=== PATIENT | female | born 1950 | race Asian ===

== ENCOUNTER → 2019-11-06 13:06 | Outpatient (CLI) | payer MEDICARE, OTHER, SELFPAY ==
[2019-11-06 13:46] LABS: BUN Creatinine Ratio 30.9 (6-22); Blood Urea Nitrogen 21 mg/dL (7-17); Estimated Glomerular Filt Rate > 60.0 mL/min (>60)
--- NOTE | 2019-11-06 14:23 | DI.CT.S_ITS ---
PROCEDURE: CT ABDOMEN PELVIS W CON INDICATIONS: RIGHT LOWER QUADRANT PAIN TECHNIQUE: After the administration of oral and intravenous contrast, 5 mm thick sections acquired from the diaphragms to the symphysis. 5 mm thick coronal and sagittal reformats were performed. For radiation dose reduction, the following was used: automated exposure control, adjustment of mA and/or kV according to patient size. COMPARISON: None. FINDINGS: Image quality: Excellent. ABDOMEN: Lung bases: Lung bases are clear. Heart size is normal. Solid organs: Liver is normal in size and enhancement. Hepatic steatosis. Gallbladder is unremarkable. Biliary system is non-dilated. Pancreas enhances normally. Spleen is normal in size and enhancement. No adrenal nodules. Kidneys are normal in size and enhancement, without hydronephrosis. Peritoneum and bowel: Stomach, small bowel, and colon loops are normal in caliber and wall thickness. No free fluid or air. Normal appendix containing air and contrast. Nodes and vessels: No retroperitoneal or mesenteric adenopathy. Aorta and inferior vena cava are normal in caliber. Miscellaneous: No ventral hernias. PELVIS: Genitourinary: Bladder wall thickness is normal. Miscellaneous: No inguinal hernias or adenopathy. Very large uterine fibroid, measuring approximately 8.5 x 6.8 x 7.1 cm. Bones: No suspicious bony lesions. No vertebral body compression fractures. IMPRESSION: 1. Very large uterine fibroid. 2. Otherwise unremarkable CT of the abdomen and pelvis with contrast. Dictated by: Clem Bland M.D. on 11/06/2019 at 15:08 Approved by: Clem Bland M.D. on 11/06/2019 at 15:11
== END ==
PROVIDERS: PCP Family Medicine; Referring Provider Family Medicine; Visit Provider Family Medicine
DX: R10.31 Right lower quadrant pain (principal); D25.9 Leiomyoma of uterus, unspecified
CPT/HCPCS: 36415; 74177; 82565; 84520; Q9967

== ENCOUNTER → 2020-02-11 10:30 | Outpatient (CLI) | payer MEDICARE, OTHER, SELFPAY ==
[2020-02-12 03:47] LABS: COVID19 Sendout Not Detected (Not Detect)
== END ==
PROVIDERS: PCP Family Medicine; Visit Provider Physician Assistant
DX: Z11.59 Encounter for screening for other viral diseases (principal)
CPT/HCPCS: 87635

== ENCOUNTER 2020-02-14 05:58 | Day surgery (SDC) | payer MEDICARE, OTHER, SELFPAY ==
[2020-02-06 08:36] VITALS: BMI 31.0
[2020-02-14] VITALS (16 sets, daily range): BP systolic 119–176; BP diastolic 58–92; PULSE 72–96; RESP 15–20; TEMP 35.8–36.7; O2SAT 92–98; BMI 31.0
--- NOTE | 2020-02-14 | PATH_ITS ---
[facility] Accession Number: [id number] . 01 Material submitted: . uterus - UTERUS,BILATERAL FALLOPIAN TUBES AND OVARIES . 02 Diagnosis: Uterus, Bilateral Fallopian Tubes and Ovaries, Hysterectomy and Bilateral Salpingo-oophorectomy (Weight 323 grams, Morcellated Specimen): Basalis endometrium; negative for glandular hyperplasia, cytologic atypia, or malignancy. Myometrium with intramural leiomyomas (0.2-6.2 cm in greatest dimension). Ovaries with patchy serosal adhesions and one ovary with an adjacent presumed adrenal cortical rest; confirmatory immunohistochemistry studies pending; results will be reported as an addendum. Fallopian tubes with serosal adhesions, nonspecific, and otherwise no significant histomorphologic abnormality. MRV 02/18/2020 1119 Local . 02 Electronically signed: . Juani Saldivar MD, Pathologist NPI- [id number] . 01 Gross description: . Received in formalin, labeled with the patient's name, MRN and uterus, bilateral fallopian tubes and ovaries, is [id number], 16.0 x 15.2 x 6.9 cm aggregate of morcellated uterus with detached ovaries (each weighing 1 gram, and measures 2.0 x 1.2 x 0.5 cm and 2.5 x 0.8 x 0.4 cm), and two detached fimbriated fallopian tubes (averaging 5.5 cm in length by 0.5 cm in diameter). . The serosal surface of the uterus is pink-pineda and smooth. The identifiable endometrium is pink-pineda with focal areas of hemorrhage. The endometrium measures 0.1 cm in thickness and the myometrium measures 1.1 cm in thickness. There are multiple white-pineda fragmented nodules ranging in size from 0.2 cm to 6.2 cm in greatest dimension. The external surfaces of the ovaries are pineda-white and cerebriform. The ovaries are bisected to reveal a pink-pineda smooth cut surface. The external surfaces of the fallopian tubes are pink-pineda and smooth. The fallopian tubes are serially sectioned to reveal a pineda-pink cut surface with a stellate lumen. No discrete cervix is identified. No discrete lesions are identified. High Lift Mule Operator sections are submitted as follows: . A1-A2: full-thickness sections of uterine wall. A3: hospital insurance representative section of half of longer ovary. A4: hospital insurance representative half of shorter ovary. A5: hospital insurance representative sections of shorter fallopian tube and entire trisected fimbriated end. A6: hospital insurance representative sections of longer fallopian tube and entire trisected fimbriated end. A7: hospital insurance representative sections of nodules. ([id number]) /MRV 02/15/2020 1239 Local . 02 Pathologist provided ICD-10: D25.9 . 02 CPT . 653948 Performed at: 01 [facility] [address] [facility], [place], [place] [id number] MD Beni Pillai MD Phone: [phone] Performed at: [address] [facility] [address] [place], [place] [id number] MD Lynda Cintron MD Phone: [phone]
[2020-02-14] MEDS: LACTATED RINGERS 1,000 ML 100 ML IV ×2 (06:45→09:31)
[2020-02-14 07:08] LABS: Add Manual Diff / Slide Review NO; Basophils Absolute Auto 100 /uL (0-100); Basophils Percent Auto 1.2 % (0-2); Eosinophils Absolute Auto 600 /uL (0-450); Eosinophils Percent Auto 6.9 % (2-4); Hematocrit 44.2 % (36-46); Hemoglobin 14.9 g/dL (12.0-16.0); Lymphocytes Absolute Auto 2600 /uL (1100-4500); Lymphocytes Percent Auto 32.7 % (25-40); Mean Corpuscular HGB Conc 33.7 % (30-36); Mean Corpuscular Hemoglobin 32.8 PG (26-34); Mean Corpuscular Volume 97.6 fL (80-100); Monocytes Absolute Auto 600 /uL (0-900); Monocytes Percent Auto 6.9 % (3-14); Neutrophils Absolute Auto 4200 /uL (1500-7000); Neutrophils Percent Auto 52.3 % (50-75); Platelet Count 247 X10^3/uL (150-400); Red Blood Cell Count 4.53 X10^6/uL (4.0-5.2); Red Cell Distribution Width 13.4 % (11.6-14.8); White Blood Cell Count 8.1 X10^3/uL (4.5-11.0)
--- NOTE | 2020-02-14 07:38 | PM.PREOP ---
Pre-operative Note COVID-19 COVID-19 status: Negative Result date/Date tested (Pos, Neg/Pending): 02/11/20 Interval Note History & Physical reviewed/Exam performed by Physician: Yes Changes to H&P: No
[2020-02-14] MEDS: CEFAZOLIN 2 GM/100 ML FROZ.PIGGY IV (07:40)
--- NOTE | 2020-02-14 08:43 | SUR.OPER ---
Lithotomy on padded OR bed. [place] Pad Positioner under torso. Head on pillow, arms padded and tucked at sides. Legs secured in padded yellow fins stirrups.
[2020-02-14] MEDS: BUPIVACAINE 0.25% W/ EPI 30 ML VIAL INJ (09:35)
[2020-02-14] MEDS: ROPIVACAINE 0.2% PF 2 MG/ML 10ML AMP 20 ML INJ (09:36)
--- NOTE | 2020-02-14 10:53 | PM.OP.1 ---
Operative Date/Time/Diagnoses Date of procedure: 02/14/20 Time of procedure: 07:45 Pre-op diagnosis: large uterine fibroid Post-op diagnosis: same Procedure & Clinicians Procedure: laparoscopic supracervical hysterectomy and bilateral salpingoophorectomy Same procedure as scheduled: Yes Indications: large, symptomatic uterine fibroid Surgeon: Elena Rose Hot Air Furnace Installer Repairer: Marie Stoll Anesthesia Type: General Operative Notes Findings: 14 week size uterus with smooth contours and good mobility. Normal vulva, vagina, cervix. Normal ovaries and tubes. Normal appendix. Closure Type: primary Specimen(s): other (uterus, bilateral tubes and ovaries) Estimated Blood Loss (mL): 50 Procedure in detail: After proper consents were obtained, the patient was taken to the operating room. General anesthesia was induced, and she was placed in the dorsal lithotomy position and prepped and draped in the normal sterile fashion. A pitt catheter was placed, and a speculum placed in the patient's vagina. A single tooth tenaculum was applied to the anterior lip of the cervix, and hegar dilators used to dilate the cervix to 6mm with gentle pressure. A uterine manipulator was gently inserted and the balloon inflated to 5ccs. The tenaculum and speculum were removed from the vagina. Attention was then turned to the abdomen, where 1cc of .25% marcaine with epinephrine was used to infiltrate the skin just below the umbilicus. A scalpel was used to make a 5mm incision, towel clamps were applied and used to elevate the anterior abdominal wall, and a Veress needle gently inserted into the abdomen. A drop of normal saline passed easily through the Veress needle with gravity, but when the CO2 gas was attached and began to flow, high-pressure was immediately noted. The Veress needle was removed in placement re-attempted, with a similar result. At this point, the Jenkins technique was used to cut down and open incision into the peritoneal cavity. This was achieved with some difficulty, it was noted that preperitoneal insufflation had occurred. The peritoneal cavity was then insufflated with CO2 gas to maximum pressure of 15 mm of mercury. Intraperitoneal placement was confirmed visually with insertion of the laparoscope. An abdominal survey at this time was normal the limited by significant fat deposits in the upper abdomen. Long 5mm lateral ports were placed under direct visualization. These were placed on the left and right, 8cm from the umbilicus and after infiltration of 1mm of local anesthetic as above. The patient was placed in steep trendelenburg position, and a blunt probe used to gently push the bowel out of the pelvis. The ovaries and fallopian tubes appeared normal bilaterally. At this point, it became evident due to the large fundal fibroid that a suprapubic biology laboratory assistant port was necessary. 1 mm of local anesthetic was infiltrated at the hairline suprapubically in the midline, a 5 mm incision was made, and a 5 mm port placed under direct visualization. A Kristine grasper was placed through the suprapubic port and used to grasp to the fundus, and an atraumatic grasper was used to elevate the right ovary and fallopian tube. The infundibular pelvic ligament was identified by lifting the tube and ovary towards the anterior wall of the abdomen. Due to copious amount of intraperitoneal fat deposit, identification of the ureter was impossible without significant retroperitoneal dissection, so the PK device was used to hug the ovary and clamped and ligate the IP ligament. The pedicle was inspected for hemostasis, and good hemostasis was identified. The broad ligament was then sequentially clamped, ligated, and cut, working towards the round ligament, avoiding the pelvic sidewall. The anterior leaf of the broad ligament was taken down on the right side, dissecting toward the peritoneal reflection to form a bladder flap. Uterine arteries were identified, clamped and ligated 3 times, and cut at the level of the internal os with good hemostasis noted. The same procedure was performed on the left, with no complications noted bilaterally. The Dalia loop was inserted into the abdomen, and placed around the uterus at the level of the internal os. After careful inspection for proper placement anteriorly and posteriorly, this device was used to amputate the uterine fundus without complication. The PK device was used to ablate the cervical os, and hemostasis achieved where necessary with the PK device. Attention was then turned to the abdominal wall, where the previously inserted suprapubic biology laboratory assistant port was noted. A scalpel was used to make a 3cm minilaparotomy, and a 15mm trocar and sleeve inserted under direct visualization into the abdominal cavity. A 12mm endocatch bag was placed through this port under direct visualization, and carefully deployed into the abdomen. The uterus was placed in the bag, and the bag was closed and removed under direct visualization of all parts of the bag. The open end of the bag was removed through the port, the port was removed, and the open end of the endocatch bag brought through the incision. A small Eddei device was inserted to protect the incision and skin, and the uterus was brought to the opening of the incision and carefully hand morcellated out through the incision using a scalpel. After removal of the uterus, the eddie device and endocatch bag were removed. The Endo-Catch bag was noted to be intact. The fascia at the minilaparotomy incision was closed using 0 vicryl in a running fashion. The fascia at the umbilical port site was similar to close using 0 Vicryl in a running fashion. The abdomen was re-insufflated, hemostasis at the operative sites assured, and a repeat abdominal survey was normal. The laparoscope was removed from the abdomen, the insufflating gas allowed to escape, and the ports removed. an interrupted suture was used at the mini-laparotomy to close the subcutaneous space in an interrupted fashion, and the skin at all 4 incisions closed with 4-0 biosyn, then covered with steri strips and bandages. The patient tolerated the procedure well, all counts were correct, 2g of Ancef were given at the beginning of the case and a test was negative on admission. The patient was transported to PACU in stable condition. IVF: 1600ccs LR UOP: 300ccs clear yellow urine EBL: 50ccs Complications: none Post-operative Condition: stable Disposition: PACU Plan for aftercare: Routine postoperative care
--- NOTE | 2020-02-14 11:17 | SUR.PHASEI ---
Patient denies pain/nausea. Scant amount of drainage at umbilicus. Griffiths to gravity. VSS.
[2020-02-14] MEDS: ONDANSETRON 4 MG/2 ML INJ IV (11:44)
[2020-02-14] MEDS: LACTATED RINGERS 1,000 ML 125 ML IV (12:50)
--- NOTE | 2020-02-14 13:08 | PM.PN.1 ---
Subjective Subjective Date Patient Seen: 02/14/20 Time Patient Seen: 13:13 Interval history: This patient is POD#0 s/p laparoscopic supracervical hysterectomy and bilateral salpingoophorectomy for a large, symptomatic uterine fibroid. She had some nausea in the PACU but this has improved, and she is recovering appropriately with good pain control. Exam Vital Signs (past 8 hours): - 02/14/20 06:53 02/14/20 10:49 02/14/20 10:54 Temperature 97.6 F 98.0 F Pulse Rate 72 92 H 93 H Respiratory Rate 20 17 17 Blood Pressure 176/92 H 146/60 H 133/61 Pulse Oximetry 98 94 93 02/14/20 10:59 02/14/20 11:04 02/14/20 11:09 Temperature 97.1 F L Pulse Rate 93 H 95 H 96 H Respiratory Rate 17 17 18 Blood Pressure 124/58 L 123/59 L 119/60 Pulse Oximetry 94 94 95 02/14/20 11:14 02/14/20 11:24 02/14/20 11:39 Temperature Pulse Rate 96 H 91 H 93 H Respiratory Rate 16 17 17 Blood Pressure 152/70 H 141/68 H 142/72 H Pulse Oximetry 93 95 97 02/14/20 11:50 02/14/20 12:20 02/14/20 12:50 Temperature 96.5 F L 96.5 F L 96.8 F L Pulse Rate 92 H 86 91 H Respiratory Rate 15 15 15 Blood Pressure 143/77 H 149/73 H 135/72 Pulse Oximetry 94 94 93 Oxygen Delivery Method Nasal Cannula Oxygen Flow Rate 2 Const General: cooperative, healthy appearing and comfortable Other: Resting in bed, joking about . Resp Effort & Inspection: normal respiratory effort Auscultation: clear to auscultation bilaterally Cardio Rate: regular rate Rhythm: regular rhythm GI Palpation: soft and No tender Other: Mildly distended but soft c/w laparoscopy. Incisions c/d/i except for some oozing and umbilicus, bandage replaced with pressure dressing. External Female Exam: normal external appearance Other: No vaginal bleeding noted. Clear, light yellow urine in pitt. Objective Labs Result Diagrams: 02/14/20 07:00 Labs: Laboratory Results - last 24 hr 02/14/20 02/14/20 07:00 07:00 WBC 8.1 RBC 4.53 Hgb 14.9 Hct 44.2 MCV 97.6 MCH 32.8 MCHC 33.7 RDW 13.4 Plt Count 247 Neut % (Auto) 52.3 Lymph % (Auto) 32.7 [place] % (Auto) 6.9 Eos % (Auto) 6.9 H Baso % (Auto) 1.2 Neut # (Auto) 4200 Lymph # (Auto) 2600 [place] # (Auto) 600 Eos # (Auto) 600 H Baso # (Auto) 100 Blood Type AB Positive Antibody Screen Negative Assessment & Plan Assessment & Plan narrative: This patient is POD#0 s/p laparoscopic supracervical hysterectomy and bilateral salpingoophorectomy for a long-identified, symptomatic, large uterine fibroid. The patient is recovering appropriately. The patient has a history of intermittently elevated BPs in our office but normal BPs per her PCP, is not diagnosed with HTN, and is on no antihypertensives. She had preoperative and immediate postoperative hypertension that appears to be resolving, and will continue to be closely monitored as per the usual postoperative protocol. - SCDs while sedentary - ADAT - Pitt removal this afternoon - VS per protocol - CBC, BMP in AM - tylenol, motrin alternating, each q6 and with oxycodone for breakthrough pain
--- NOTE | 2020-02-14 13:52 | PC.NURSE ---
Patient received post op from PACU at approximately 1150 am. Sleepy but patient awakens easily to voice, states I still feel very groggy. Answering questions appropriately. Clear yellow urine noted in pitt catheter. Faina pad in place without drainage noted. 4 Abdominal lap sites with steristrips, bandaids and tegaderm in place remain unchanged. Patient denies pain, denies nausea at this time. Declines lunch, but will try sipping chicken broth, water and crackers. Call light within reach. Continue to monitor.
[2020-02-15] MEDS: LACTATED RINGERS 1,000 ML 125 ML IV (03:35)
[2020-02-15 05:42] VITALS: BP 144/73; PULSE 75; RESP 16; TEMP 36.2; O2SAT 93
[2020-02-15 06:10] LABS: BUN Creatinine Ratio 24.6 (6-22); Blood Urea Nitrogen 15 mg/dL (7-17); Calcium 8.9 mg/dL (8.4-10.2); Carbon Dioxide 26 mmol/L (22-32); Chloride 105 mmol/L (98-107); Estimated Glomerular Filt Rate > 60.0 mL/min (>60); Glucose 124 mg/dL (80-110); HEMOLYSIS < 15 (0-50); Sodium 136 mmol/L (137-145)
[2020-02-15 06:50] LABS: Add Manual Diff / Slide Review NO; Basophils Absolute Auto 100 /uL (0-100); Basophils Percent Auto 0.6 % (0-2); Eosinophils Absolute Auto 0 /uL (0-450); Eosinophils Percent Auto 0.1 % (2-4); Hematocrit 39.5 % (36-46); Hemoglobin 13.1 g/dL (12.0-16.0); Lymphocytes Absolute Auto 1700 /uL (1100-4500); Lymphocytes Percent Auto 12.7 % (25-40); Mean Corpuscular HGB Conc 33.2 % (30-36); Mean Corpuscular Hemoglobin 32.5 PG (26-34); Mean Corpuscular Volume 97.8 fL (80-100); Monocytes Absolute Auto 600 /uL (0-900); Monocytes Percent Auto 4.9 % (3-14); Neutrophils Absolute Auto 10900 /uL (1500-7000); Neutrophils Percent Auto 81.7 % (50-75); Platelet Count 231 X10^3/uL (150-400); Red Blood Cell Count 4.03 X10^6/uL (4.0-5.2); Red Cell Distribution Width 13.1 % (11.6-14.8); White Blood Cell Count 13.3 X10^3/uL (4.5-11.0)
[2020-02-15 07:45] VITALS: BP 134/72; PULSE 69; RESP 16; TEMP 36.4; O2SAT 94
--- NOTE | 2020-02-15 08:23 | P.PN_ITS ---
Subjective Subjective Date Patient Seen: 02/15/20 Time Patient Seen: 08:38 Interval history: Patient reports feeling well this morning, good pain control, ambulating, voiding, tolerating p.o.. Reported scant vaginal bleeding once last night, none since. Clear urine. Reports the abdomen was distended in painful briefly overnight, resolved significantly with passage of large amount of flatus. Exam Vital Signs (past 8 hours): - 02/15/20 05:42 Temperature 97.2 F L Pulse Rate 75 Respiratory Rate 16 Blood Pressure 144/73 H Pulse Oximetry 93 Oxygen Delivery Method Room Air Oxygen Flow Rate 2 Const General: cooperative, healthy appearing, comfortable and No acute distress Resp Effort & Inspection: normal respiratory effort Auscultation: clear to auscultation bilaterally Cardio Rate: regular rate Rhythm: regular rhythm GI Palpation: soft and No tender Other: Mildly distended and tympanic, but soft and nontender. Umbilical and lateral port sites clean, dry, intact. Suprapubic port site with mild oozing, bandage replaced. Objective Labs Result Diagrams: 02/15/20 05:50 02/15/20 05:50 Labs: Laboratory Results - last 24 hr 02/15/20 02/15/20 05:50 05:50 WBC 13.3 H D RBC 4.03 Hgb 13.1 Hct 39.5 MCV 97.8 MCH 32.5 MCHC 33.2 RDW 13.1 Plt Count 231 Neut % (Auto) 81.7 H D Lymph % (Auto) 12.7 L D [place] % (Auto) 4.9 Eos % (Auto) 0.1 L Baso % (Auto) 0.6 Neut # (Auto) 53346 H Lymph # (Auto) 1700 [place] # (Auto) 600 Eos # (Auto) 0 Baso # (Auto) 100 Sodium 136 L Potassium 4.0 Chloride 105 Carbon Dioxide 26 BUN 15 Creatinine 0.61 Estimated GFR > 60.0 BUN/Creatinine Ratio 24.6 H Glucose 124 H Calcium 8.9 Assessment & Plan Post-op Postoperative Procedures: Procedures Operation Date: 02/14/20 07:45 Actual Procedures Side Surgeon p Laparoscopic Supracervical Hysterectomy W/ Bilateral saplingo-oophorectomy Elena Rose MD Postoperative day: 1 Postoperative status: doing well Postoperative status narrative: This patient is doing well postoperatively, postop day 1 status post a technically challenging but uncomplicated laparoscopic supracervical hysterectomy and bilateral salpingo oophorectomy. The patient is meeting postoperative goals, is ambulating, has good pain control, is voiding, is tolerating p.o.. Patient to eat breakfast and ambulate about floor today, planning for discharge later this morning. Routine precautions discussed. Postoperative plan: ambulate, advance diet and discharge Time Spent With Patient Time with patient: 15-24 minutes
--- NOTE | 2020-02-15 08:30 | P.DS_ITS ---
History of Present Illness History of Present Illness Date Patient Seen: 02/15/20 Time Patient Seen: 07:45 Chief complaint: SDC Narrative: This patient was 69-year-old para 1 now postop day 1 status post laparoscopic supracervical hysterectomy and bilateral salpingo oophorectomy for a 10 cm, longstanding but symptomatic uterine fibroid. The surgery was technically challenging but ultimately uncomplicated, and the patient met postoperative goals appropriately and was discharged on postop day 1. Discharge Providers Provider Date of admission: 02/14/2020 Discharge Date: 02/15/20 Primary care physician: Teodoro Munson DO Consults: 02/14/20 12:10 Consult to Discharge Planning Routine Comment: Discharge provider: Elena Rose MD Summary Status at Discharge Cognitive/behavioral status at discharge: oriented Functional status at discharge: independent ambulation Overall status at discharge: patient is progressing back to baseline Exam Vital Signs (past 8 hours): - 02/15/20 05:42 Temperature 97.2 F L Pulse Rate 75 Respiratory Rate 16 Blood Pressure 144/73 H Pulse Oximetry 93 Oxygen Delivery Method Room Air Oxygen Flow Rate 2 Objective Labs Result Diagrams: 02/15/20 05:50 02/15/20 05:50 Labs: Laboratory Results - last 24 hr 02/15/20 02/15/20 05:50 05:50 WBC 13.3 H D RBC 4.03 Hgb 13.1 Hct 39.5 MCV 97.8 MCH 32.5 MCHC 33.2 RDW 13.1 Plt Count 231 Neut % (Auto) 81.7 H D Lymph % (Auto) 12.7 L D [place] % (Auto) 4.9 Eos % (Auto) 0.1 L Baso % (Auto) 0.6 Neut # (Auto) 47127 H Lymph # (Auto) 1700 [place] # (Auto) 600 Eos # (Auto) 0 Baso # (Auto) 100 Sodium 136 L Potassium 4.0 Chloride 105 Carbon Dioxide 26 BUN 15 Creatinine 0.61 Estimated GFR > 60.0 BUN/Creatinine Ratio 24.6 H Glucose 124 H Calcium 8.9 Discharge Plan Discharge Plan Patient Disposition: Home Discharge Med Rec/Prescriptions Prescriptions: New docusate sodium [Colace] 100 mg capsule 100 mg PO BID Qty: 30 RF: 0 Follow up/Referrals: Elena Rose MD [Physician] - 1 Week (Laparoscopic supracervical hysterectomy Appt. Scheduled for Tuesday at 10:30am) Teodoro Munson DO [Primary Care Provider] - Discharge Orders: Discharge (Order); Ordered 02/15/20 Ordered By: Elena Rose Provider Discharge Instructions Diet: Regular Activity: Nothing in the vagina for 4 weeks. Avoid lifting more than 10 lb for 6 weeks. If you have increasing pain, increasing vaginal bleeding, difficulty voiding or passing bowel movements, headaches, chest pain, fevers, chills, nausea, or any other concerning symptoms, call the clinic number at [phone] or come to the emergency room. Skin/Wound/Dressing Care Report to your healthcare provider any signs of infection, such as:: chills, fever, night sweats, increased pain, unusual drainage and unusual redness Dressing: Remove in shower within 1 week. Visit Report/Discharge Packet Instructions: DI for Hysterectomy, DI for Laparoscopy Stand Alone Forms: Surgery Discharge Visit Report Forms: Stroke Signs & Symptoms Discharge Data Primary Care Provider: Teodoro Munson Attending Provider: Elena Rose Discharges patient from system. Discharge Date/Time: 02/15/20 13:00
--- NOTE | 2020-02-15 09:30 | CM.DANOTE ---
Addendum entered by Tammy Moser LPN 02/15/20 10:00: Pt confirms her readiness for home today and in company of her . LESVIA Samaniego planning for d/c after lunch. Pt is a 69 year old female who admitted yesterday for a scheduled gynecological surgery. Surgeon: Dr. Rose. Payer: Medicare and [employer]. Admission status: in review: per UR LESVIA Bazan. P: home today as per above. Original Note: Discharge Planning/Care Management Case received, EMR reviewed and met with pt and her . DC order to home noted. CM Discharge Assessment Start: 02/15/20 09:26 Freq: Status: Active Protocol: Document 02/15/20 09:26 ITV (Rec: 02/15/20 09:30 ITV [id number]) Discharge Planning Assessment Advance Directives? No History Provided By Patient,Medical Record Prior Living Arrangements House Household Members spouse Independent with ADL's Yes Is patient alert and oriented? Yes Review Status In Process Pre-Anesthesia Assessment Start: 02/06/20 08:36 Freq: Status: Complete Protocol: Document 02/06/20 08:36 CAB (Rec: 02/06/20 08:41 CAB [id number]) Pre-Anesthesia Assessment Patient Information Reviewed Via Chart Review Diagnostic Results EKG Comment Outside labs/EKG scanned to record-COVID screen @ Primary Care Provider Teodoro Munson Seen Specialist in Last 12 Months Yes Specialist Seen Product Development Coordinator Comment PCP visit 12/13/19 scanned to record Primary Language Lao Second Crusher Required No Height 152.4 cm Weight 72.121 kg Body Mass Index (BMI) 31.0 Hearing Ability Hard of Hearing,Use of Hearing Aid Visual Assist Glasses Barriers to Learning None Hx Anesthesia Reactions No Hx Family Anesthesia Reaction No Hx Malignant Hyperthermia No Hx Blood Transfusions No Anesthesia Review Requested No Order Picker/Assembler No alcohol intake never Smoking Status Never smoker Substance Use Type does not use Pain Present Pain Reported Comment RLQ History of Falling (Recent or History of No ) Patient is completely paralyzed or No completely immobile Mental Status Oriented to own ability Is patient on oxygen? No Does patient have GARCIA/SOB No Hx Sleep Apnea No Currently Taking a Beta [place]in No Hx Chest Pain No Hx SOB No Hx Syncope or Dizziness No Anti-Coagulant Therapy No Has a Children'S Librarian No Cardiac Testing No Hx Pacemaker/ICD No Pacemaker Rep Required? No Cardiac Clearance Received Not Applicable Gastrointestinal Symptoms Bloating Genitourinary Symptoms Pelvic Pain Bladder Pattern Frequency Urinary Catheter Present No Hx Urinary Self Catheterization No Diabetes No Patient No Lactating No Hx Drug Resistant Organism No Presence of External or Internal Medical No Devices Have you had any close contact with Unknown someone diagnosed with COVID-19? Marital Status Lives With spouse Patient Discharge Plan Description Return Home
--- NOTE | 2020-02-15 11:04 | PC.NURSE ---
Patient is up and ambulating in the halls this morning. She has 3 small incisions to her lower abdomen that are cdi, one below umbilicus has some dried drainage to it and steri strips are intact. Patient has been ambulating in the halls and will go home after she eats lunch, to make sure that she is taking po well without any nausea. Lower abdomen is distended and patient states that this is somewhat normal for her. She is passing gas and voiding well. Faina pad with small amount of crimson colored blood but dried. in room and is attentive to care, he will be patients ride when she is ready to go.
== END 2020-02-15 13:00 | disposition home or self-care (01) ==
LOC: OR 06:02 → AC 11:49
PROVIDERS: PCP Family Medicine; Referring Provider Family Medicine; Visit Provider Obstetrics & Gynecology
PROC: 0UT94ZL Resection of Uterus, Supracervical, Percutaneous Endoscopic Approach (ICD-10-PCS; CPT 58544; principal; 2020-02-14 07:45)
DX: D25.1 Intramural leiomyoma of uterus (principal); N73.6 Female pelvic peritoneal adhesions (postinfective)
CPT/HCPCS: 58544; 36415; 80048; 85025; 86850; 86900; 86901; J0330; J0690; J1100; J1170; J1885; J2405; J2704; J2795; J3010

== ENCOUNTER → 2020-07-11 11:43 | Outpatient (CLI) | payer MEDICARE, OTHER, SELFPAY ==
[2020-02-14 12:39] VITALS: BMI 31.0
--- NOTE | 2020-07-11 11:46 | DI.MG.S_ITS ---
BILATERAL DIGITAL SCREENING MAMMOGRAM 3D/2D WITH CAD: 07/11/2020 CLINICAL: Routine screening. Comparison is made to exams dated: 10/13/2017 mammogram, 09/20/2016 mammogram - [facility], and 07/17/2015 mammogram - [facility]. There are scattered fibroglandular elements in both breasts. Current study was also evaluated with a Computer Aided Detection (CAD) system. No significant masses, calcifications, or other findings are seen in either breast. There has been no significant interval change. IMPRESSION: NEGATIVE There is no mammographic evidence of malignancy. A 1 year screening mammogram is recommended. This exam was interpreted at Station ID: [id number]. NOTE: For mammograms, a report in lay terms will be sent to the patient. Approximately 15% of breast malignancies will not be visualized mammographically. In the management of a palpable breast mass, a negative mammogram must not discourage biopsy of a clinically suspicious lesion. Electronically Signed By: Orestes mckeon/lauryn:07/11/2020 18:06:17 letter sent: Normal Exam ACR BI-RADS Category 1: Negative 3341F
== END ==
PROVIDERS: PCP Family Medicine; Referring Provider Family Medicine; Visit Provider Family Medicine
DX: Z12.31 Encounter for screening mammogram for malignant neoplasm of breast (principal); Z13.820 Encounter for screening for osteoporosis; Z78.0 Asymptomatic menopausal state; Z90.722 Acquired absence of ovaries, bilateral
CPT/HCPCS: 77063; 77067; 77080

== ENCOUNTER → 2021-08-29 11:02 | Outpatient (CLI) | payer MEDICARE, OTHER, SELFPAY ==
[2020-02-14 12:39] VITALS: BMI 31.0
--- NOTE | 2021-08-29 | DI.MG.S_ITS ---
BILATERAL DIGITAL SCREENING MAMMOGRAM 3D/2D WITH CAD: 08/29/2021 CLINICAL: Routine screening. Comparison is made to exams dated: 07/11/2020 mammogram, 10/13/2017 mammogram, 09/20/2016 mammogram - [facility], and 07/17/2015 mammogram - [facility]. There are scattered fibroglandular elements in both breasts. Current study was also evaluated with a Computer Aided Detection (CAD) system. No significant masses, calcifications, or other findings are seen in either breast. There has been no significant interval change. IMPRESSION: NEGATIVE There is no mammographic evidence of malignancy. A 1 year screening mammogram is recommended. This exam was interpreted at Station ID: [id number]. NOTE: For mammograms, a report in lay terms will be sent to the patient. Approximately 15% of breast malignancies will not be visualized mammographically. In the management of a palpable breast mass, a negative mammogram must not discourage biopsy of a clinically suspicious lesion. Electronically Signed By: Orestes mckeon/lauryn:08/31/2021 09:44:45 letter sent: Normal Exam ACR BI-RADS Category 1: Negative 3341F
== END ==
PROVIDERS: PCP Family Medicine; Referring Provider Family Medicine; Visit Provider Family Medicine
DX: Z12.31 Encounter for screening mammogram for malignant neoplasm of breast (principal)
CPT/HCPCS: 77063; 77067

== ENCOUNTER → 2022-11-23 10:44 | Outpatient (CLI) | payer MEDICARE, OTHER, SELFPAY ==
[2020-02-14 12:39] VITALS: BMI 31.0
--- NOTE | 2022-11-23 | DI.MG.S_ITS ---
BILATERAL DIGITAL SCREENING MAMMOGRAM 3D/2D WITH CAD: 11/23/2022 CLINICAL: Routine screening. Comparison is made to exams dated: 07/11/2020 mammogram, 08/29/2021 mammogram, and 10/13/2017 mammogram - [facility]. There are scattered areas of fibroglandular density in both breasts (category b / 25%-50% glandular tissue). Current study was also evaluated with a Computer Aided Detection (CAD) system. No significant masses, calcifications, or other findings are seen in either breast. There has been no significant interval change. IMPRESSION: NEGATIVE There is no mammographic evidence of malignancy. A 1 year screening mammogram is recommended. Based on the Tyrer Cuzick model (a risk assessment model) the patient's lifetime risk is 3.4% and her 10 year risk is 2.3%. According to the ACR, ACS, and NCCN guidelines, an annual breast MRI exam along with mammogram is recommended if the patient's lifetime risk is 20% or greater. This exam was interpreted at Station ID: [id number]. NOTE: For mammograms, a report in lay terms will be sent to the patient. Approximately 15% of breast malignancies will not be visualized mammographically. In the management of a palpable breast mass, a negative mammogram must not discourage biopsy of a clinically suspicious lesion. Electronically Signed By: Orestes mckeon/lauryn:11/23/2022 13:00:59 letter sent: Normal Exam ACR BI-RADS Category 1: Negative 3341F
== END ==
PROVIDERS: PCP Family Medicine; Referring Provider Family Medicine; Visit Provider Family Medicine
DX: Z12.31 Encounter for screening mammogram for malignant neoplasm of breast (principal)
CPT/HCPCS: 77063; 77067

== ENCOUNTER 2022-12-28 17:50 | Emergency (ER) | payer MEDICARE, OTHER, SELFPAY ==
[2020-02-14 12:39] VITALS: BMI 31.0
[2022-12-28] VITALS (7 sets, daily range): BP systolic 155–187; BP diastolic 72–81; PULSE 63–74; RESP 12–24; TEMP 36.6; O2SAT 95–97; BMI 31.0
[2022-12-28 18:31] LABS: Add Manual Diff / Slide Review NO; Basophils Absolute Auto 100 /uL (0-100); Basophils Percent Auto 1.2 % (0-2); Eosinophils Absolute Auto 100 /uL (0-450); Eosinophils Percent Auto 1.8 % (2-4); Hematocrit 35.5 % (36-46); Hemoglobin 12.3 g/dL (12.0-16.0); Lymphocytes Absolute Auto 2500 /uL (1100-4500); Lymphocytes Percent Auto 45.9 % (25-40); Mean Corpuscular HGB Conc 34.7 % (30-36); Mean Corpuscular Hemoglobin 33.3 PG (26-34); Mean Corpuscular Volume 95.9 fL (80-100); Monocytes Absolute Auto 300 /uL (0-900); Monocytes Percent Auto 5.3 % (3-14); Neutrophils Absolute Auto 2500 /uL (1500-7000); Neutrophils Percent Auto 45.8 % (50-75); Platelet Count 200 X10^3/uL (150-400); Red Cell Distribution Width 14.2 % (11.6-14.8); White Blood Cell Count 5.4 X10^3/uL (4.5-11.0)
[2022-12-28 18:34] LABS: INR 1.2 (0.9-1.3); Prothrombin Time 13.3 SECONDS (10.1-12.7)
[2022-12-28 18:36] LABS: PTT Partial Thromboplastin Tim 28 SECONDS (26-36)
[2022-12-28 18:39] LABS: Alanine Aminotransferase 40 IU/L (<35); Albumin 4.1 g/dL (3.5-5.0); Albumin Globulin Ratio 0.7 (1.0-2.8); Alkaline Phosphatase 69 U/L (38-126); Aspartate Aminotransferase 44 IU/L (14-36); BUN Creatinine Ratio 33.3 (6-22); Bilirubin Total 0.6 mg/dL (0.2-1.3); Blood Urea Nitrogen 18 mg/dL (7-17); Calcium 8.6 mg/dL (8.4-10.2); Carbon Dioxide 24 mmol/L (22-32); Chloride 108 mmol/L (98-107); Estimated Glomerular Filt Rate > 60 mL/min (>60); Globulin 5.5 g/dL (1.7-4.1); Glucose 91 mg/dL (80-110); HEMOLYSIS 49 (0-50); Sodium 138 mmol/L (137-145); Total Protein 9.6 g/dL (6.3-8.2)
[2022-12-28] MEDS: PANTOPRAZOLE 40 MG VIAL 80 MG IV (19:30)
--- NOTE | 2022-12-28 19:34 | ED_ITS ---
HPI - GI Bleed General Chief complaint: GI Bleed Stated complaint: blood in bm x1 day Time Seen by Provider: 12/28/22 19:34 History of Present Illness HPI Narrative: Patient is a 72-year-old female without significant past medical history presenting today with 2 episodes of bright red blood per rectum. He reports that this morning around 3:00 a.m. she had blood clots bright-red blood. She had a 2nd 1 around 4:00 p.m.. She has minimal abdominal cramping no dizziness or lightheadedness. She is not on blood thinners. Get a colonoscopy many years ago but has not had a repeat. No chest pain shortness of breath or other symptoms. Related Data Allergies Allergy/AdvReac Type Severity Reaction Status Date / Time No Known Drug Allergies Allergy Verified 12/28/22 17:55 Review of Systems Review of Systems ROS Unobtainable: All systems reviewed & are unremarkable except as noted in HPI and below Patient History Medical History (Updated 12/28/22 @ 21:23 by Bety Zamora DO) Arthritis Chicken pox (~1960) Hearing loss (~2014) Neuropathy Plantar fasciitis (~2014) Uterine fibroid (~2004) Wears glasses Surgical History Anesthesia H/O vaginal delivery History of blepharoplasty (12/04/15) Family History Mother Pneumonia Sister Cancer Social History household members: spouse Smoking Status: Never smoker alcohol intake: never Smoking Status: Never smoker Substance Use Type: does not use Exam Initial Vital Signs Initial Vital Signs: Vital Signs Temperature 98 F 12/28/22 17:52 Pulse Rate 74 12/28/22 17:52 Respiratory Rate 18 12/28/22 17:52 Blood Pressure 181/76 H 12/28/22 17:52 Pulse Oximetry 95 12/28/22 17:52 Oxygen Delivery Method Room Air 12/28/22 17:52 GENERAL: Alert pleasant 72-year-old female and in no acute distress. HEENT: Head atraumatic,EOMI, pupils reactive, face symmetric, moist mucous membranes CARDIOVASCULAR: Regular rate and rhythm without murmurs, rubs or gallops. RESPIRATORY: Breath sounds equal bilaterally, no wheezes rales or rhonchi. ABDOMEN: Soft, nontender. Normoactive bowel sounds all 4 quadrants. No guarding or rebound. RECTAL: No gross rectal blood non painful non thrombosed hemorrhoid EXTREMITIES: Normal range of motion, no clubbing or edema. Neurovascularly intact NEUROLOGICAL: Alert and oriented x4. SKIN: Warm, dry, no laceration, no petechiae, no rashes or lesions. Course Orders Ordered: ED Orders 12/28/22 20:05 Hemoglobin and Hematocrit Stat Discontinued Medications Ondansetron HCl (Ondansetron 4 Mg/2 Ml Inj) 4 mg IV NOW PRN PRN Reason: Nausea And Vomiting Ondansetron HCl (Ondansetron 4 Mg Odt) 4 mg SL NOW PRN PRN Reason: Nausea And Vomiting Pantoprazole Sodium (Pantoprazole 40 Mg Vial) 80 mg IV NOW ONE Stop: 12/28/22 17:58 Last Admin: 12/28/22 19:30 Dose: 80 mg Documented By: ISATU Vital Signs Vital signs: Vital Signs - 8 hr 12/28/22 20:30 12/28/22 20:30 12/28/22 21:00 Pulse Rate 63 Respiratory Rate 12 Blood Pressure 169/80 H 179/79 H Pulse Oximetry 96 Oxygen Delivery Method Room Air 12/28/22 21:00 12/28/22 21:30 12/28/22 21:30 Pulse Rate 64 64 Respiratory Rate 13 15 Blood Pressure 187/81 H Pulse Oximetry 95 96 Oxygen Delivery Method Room Air Room Air MDM - GI Bleed Lab Data 12/28/22 20:05 12/28/22 18:15 Labs: Lab Results 12/28/22 12/28/22 12/28/22 Range/Units 18:15 18:15 18:15 WBC 5.4 (4.5-11.0) X10^3/uL RBC 3.70 L (4.0-5.2) X10^6/uL Hgb 12.3 (12.0-16.0) g/dL Hct 35.5 L (36-46) % MCV 95.9 (80-100) fL MCH 33.3 (26-34) PG MCHC 34.7 (30-36) % RDW 14.2 (11.6-14.8) % Plt Count 200 (150-400) X10^3/uL Neut % (Auto) 45.8 L (50-75) % Lymph % (Auto) 45.9 H (25-40) % [place] % (Auto) 5.3 (3-14) % Eos % (Auto) 1.8 L (2-4) % Baso % (Auto) 1.2 (0-2) % Neut # (Auto) 2500 (2145-0348) /uL Lymph # (Auto) 2500 (6018-1633) /uL [place] # (Auto) 300 (0-900) /uL Eos # (Auto) 100 (0-450) /uL Baso # (Auto) 100 (0-100) /uL PT 13.3 H (10.1-12.7) SECONDS INR 1.2 (0.9-1.3) APTT 28 (26-36) SECONDS Sodium 138 (137-145) mmol/L Potassium 4.0 (3.4-5.1) mmol/L Chloride 108 H (98-107) mmol/L Carbon Dioxide 24 (22-32) mmol/L BUN 18 H (7-17) mg/dL Creatinine 0.54 (0.52-1.04) mg/dL Estimated GFR > 60 (>60) mL/min BUN/Creatinine Ratio 33.3 H (6-22) Glucose 91 (80-110) mg/dL Calcium 8.6 (8.4-10.2) mg/dL Total Bilirubin 0.6 (0.2-1.3) mg/dL AST 44 H (14-36) IU/L ALT 40 H (<35) IU/L Alkaline Phosphatase 69 (38-126) U/L Total Protein 9.6 H (6.3-8.2) g/dL Albumin 4.1 (3.5-5.0) g/dL Globulin 5.5 H (1.7-4.1) g/dL Albumin/Globulin Ratio 0.7 L (1.0-2.8) Blood Type Antibody Screen 12/28/22 12/28/22 Range/Units 18:15 20:05 WBC (4.5-11.0) X10^3/uL RBC (4.0-5.2) X10^6/uL Hgb 12.0 (12.0-16.0) g/dL Hct 35.2 L (36-46) % MCV (80-100) fL MCH (26-34) PG MCHC (30-36) % RDW (11.6-14.8) % Plt Count (150-400) X10^3/uL Neut % (Auto) (50-75) % Lymph % (Auto) (25-40) % Alexandria % (Auto) (3-14) % Eos % (Auto) (2-4) % Baso % (Auto) (0-2) % Neut # (Auto) (6864-5010) /uL Lymph # (Auto) (3241-3898) /uL [place] # (Auto) (0-900) /uL Eos # (Auto) (0-450) /uL Baso # (Auto) (0-100) /uL PT (10.1-12.7) SECONDS INR (0.9-1.3) APTT (26-36) SECONDS Sodium (137-145) mmol/L Potassium (3.4-5.1) mmol/L Chloride (98-107) mmol/L Carbon Dioxide (22-32) mmol/L BUN (7-17) mg/dL Creatinine (0.52-1.04) mg/dL Estimated GFR (>60) mL/min BUN/Creatinine Ratio (6-22) Glucose (80-110) mg/dL Calcium (8.4-10.2) mg/dL Total Bilirubin (0.2-1.3) mg/dL AST (14-36) IU/L ALT (<35) IU/L Alkaline Phosphatase (38-126) U/L Total Protein (6.3-8.2) g/dL Albumin (3.5-5.0) g/dL Globulin (1.7-4.1) g/dL Albumin/Globulin Ratio (1.0-2.8) Blood Type AB Positive Antibody Screen Negative ECG Data Interpretation: Sinus rhythm 68 [place] interval 128 QRS 82 QTC [address] changes MDM Narrative Medical decision making narrative: 72-year-old female presenting today with 2 episodes of bright red blood per r ectum. She is not on any antiplatelet anticoagulation medication. She is hemodynamically stable. She has a repeat H and H which is virtually unchanged and stable. Rectal exam was unremarkable. Blood work does not show any clinical abnormal significance. This time really do not see any need for admission she definitely needs a colonoscopy follow-up with PCP and general surgery. Return if bleeding worsens. Discharge Plan Departure Patient Disposition: Home Clinical Impression: Bright red rectal bleeding Instructions: DI for Rectal Bleeding Activity Restrictions/Additional Instructions: (blood type was not done, sorry) *You have been diagnosed with rectal bleeding *What to do: At this time your blood work is stable. You definitely need a colonoscopy and evaluation. You may have another 1-2 episodes of rectal bleeding. *Continue to take medications as directed *Follow up with your primary care provider in 2-3 days or call [phone] Please call general surgery for outpatient colonoscopy *Return to ER if you should have if it is large amount frequent episodes dizzy lightheaded or passing out or any new, worsening or concerning symptoms Referrals: [facility] [Provider Group] Teodoro Munson DO [Primary Care Provider] - Thanh Dobbins MD [Physician] - Gianluca Segundo MD [Physician] - Stand Alone Forms: Patient Portal/API
[2022-12-28 20:18] LABS: Hematocrit 35.2 % (36-46)
== END 2022-12-28 21:50 | disposition home or self-care (01) ==
PROVIDERS: Emergency Medicine; Emergency Provider Emergency Medicine; PCP Family Medicine
DX: K62.5 Hemorrhage of anus and rectum (principal)
CPT/HCPCS: 36415; 80053; 85014; 85018; 85025; 85610; 85730; 86850; 86900; 86901; 93005; 93010; 96374; 99284; C9113

== ENCOUNTER → 2023-12-13 14:32 | Outpatient (CLI) | payer MEDICARE, OTHER, SELFPAY ==
[2020-02-14 12:39] VITALS: BMI 31.0
--- NOTE | 2023-12-13 14:33 | DI.MG.S_ITS ---
BILATERAL DIGITAL SCREENING MAMMOGRAM 3D/2D WITH CAD: 12/13/2023 CLINICAL: Routine screening. Comparison is made to exams dated: 11/23/2022 mammogram, 08/29/2021 mammogram, and 07/11/2020 mammogram - [facility]. There are scattered areas of fibroglandular density in both breasts (category b / 25%-50% glandular tissue). Current study was also evaluated with a Computer Aided Detection (CAD) system. There is a possible developing round asymmetry with an obscured and microlobulated margin in the left breast at 2 o'clock middle depth. No other significant masses, calcifications, or other findings are seen in either breast. IMPRESSION: INCOMPLETE: NEEDS ADDITIONAL IMAGING EVALUATION The possible developing round asymmetry in the left breast is indeterminate. Additional views with possible ultrasound are recommended. Based on the Tyrer Cuzick model (a risk assessment model) the patient's lifetime risk is 3.2% and her 10 year risk is 2.4%. According to the ACR, ACS, and NCCN guidelines, an annual breast MRI exam along with mammogram is recommended if the patient's lifetime risk is 20% or greater. This exam was interpreted at Station ID: [id number]. NOTE: For mammograms, a report in lay terms will be sent to the patient. Approximately 15% of breast malignancies will not be visualized mammographically. In the management of a palpable breast mass, a negative mammogram must not discourage biopsy of a clinically suspicious lesion. Electronically Signed By: Anne hernandez/lauryn:12/13/2023 16:22:51 letter sent: Additional Imaging Needed ACR BI-RADS Category 0: Incomplete 3340F
== END ==
PROVIDERS: PCP Family Medicine; Referring Provider Family Medicine; Visit Provider Family Medicine
DX: Z12.31 Encounter for screening mammogram for malignant neoplasm of breast (principal); R92.323 Mammographic fibroglandular density, bilateral breasts
CPT/HCPCS: 77063; 77067

== ENCOUNTER → 2023-12-28 11:19 | Outpatient (CLI) | payer MEDICARE, OTHER, SELFPAY ==
[2020-02-14 12:39] VITALS: BMI 31.0
--- NOTE | 2023-12-28 11:22 | DI.MG.S_ITS ---
UNILATERAL LEFT DIGITAL DIAGNOSTIC MAMMOGRAM 3D/2D WITH ADDITIONAL VIEWS: 12/28/2023 CLINICAL: Additional evaluation requested from prior study. Comparison is made to exams dated: 12/13/2023 mammogram, 11/23/2022 mammogram, 08/29/2021 mammogram, and 07/11/2020 mammogram - [facility]. There are scattered areas of fibroglandular density in the left breast (category b / 25%-50% glandular tissue). There is a focal asymmetry in the left breast at 2 o'clock middle depth. No other significant masses or calcifications are seen in the breast. IMPRESSION: INCOMPLETE: NEEDS ADDITIONAL IMAGING EVALUATION The focal asymmetry in the left breast has a differential diagnosis of fibroglandular tissue and is indeterminate. A targeted ultrasound is recommended and will immediately follow. Based on the Tyrer Cuzick model (a risk assessment model) the patient's lifetime risk is 3.2% and her 10 year risk is 2.4%. According to the ACR, ACS, and NCCN guidelines, an annual breast MRI exam along with mammogram is recommended if the patient's lifetime risk is 20% or greater. This exam was interpreted at Station ID: [id number]. NOTE: For mammograms, a report in lay terms will be sent to the patient. Approximately 15% of breast malignancies will not be visualized mammographically. In the management of a palpable breast mass, a negative mammogram must not discourage biopsy of a clinically suspicious lesion. Electronically Signed By: Orestes Rivero M.D. slc/:12/28/2023 12:32:18 ACR BI-RADS Category 0: Incomplete 3340F
--- NOTE | 2023-12-28 11:23 | DI.US.S_ITS ---
LIMITED ULTRASOUND OF LEFT BREAST: 12/28/2023 CLINICAL: Follow up from addtional views. Comparison is made to exams dated: 12/28/2023 mammogram, 12/13/2023 mammogram, 11/23/2022 mammogram, and 08/29/2021 mammogram - [facility]. Color flow and real-time ultrasound of the left breast 2 o'clock region were performed. Santiago scale images of the real-time examination were reviewed. There is a 1 cm x 0.9 cm x 0.5 cm cluster of cysts in the left breast at 1 o'clock middle depth 7 cm from the nipple. This cluster of cysts is hypoechoic. This correlates with mammography findings. Color flow imaging demonstrates that there is no vascularity present. IMPRESSION: PROBABLY BENIGN The 1 cm cluster of cysts in the left breast is probably benign. A follow-up mammogram and an ultrasound in 6 months is recommended to demonstrate stability. Exam findings were conveyed to the patient. This exam was interpreted at Station ID: [id number]. Electronically Signed By: Orestes Rivero M.D. slc/:12/28/2023 12:54:08 letter sent: Followup Recommended Ultrasound BI-RADS: 3 Probably benign
== END ==
PROVIDERS: PCP Family Medicine; Referring Provider Family Medicine; Visit Provider Family Medicine
DX: R92.8 Other abnormal and inconclusive findings on diagnostic imaging of breast (principal); N60.02 Solitary cyst of left breast; R92.322 Mammographic fibroglandular density, left breast
CPT/HCPCS: 76642; 77065; G0279

== ENCOUNTER → 2024-07-24 09:59 | Outpatient (CLI) | payer MEDICARE, OTHER, SELFPAY ==
[2020-02-14 12:39] VITALS: BMI 31.0
--- NOTE | 2024-07-24 10:01 | DI.US.S_ITS ---
LIMITED ULTRASOUND OF LEFT BREAST AND AXILLA: 07/24/2024 CLINICAL: Patient returns today to evaluate a focal asymmetry in the left breast. Comparison is made to exams dated: 07/24/2024 mammogram, 12/28/2023 ultrasound, 12/28/2023 mammogram, 12/13/2023 mammogram, 11/23/2022 mammogram, and 08/29/2021 mammogram - [facility]. Color flow and real-time ultrasound of the left breast 2 o'clock, and axilla regions were performed. Santiago scale images of the real-time examination were reviewed. There is a stable 1 cm x 0.9 cm x 0.5 cm cluster of irregular cysts in the left breast at 2 o'clock middle depth 7 cm from the nipple. This cluster of irregular cysts is hypoechoic. This correlates with mammography findings. Color flow imaging demonstrates that there is no vascularity present. No significant abnormalities were seen sonographically in the left axilla. No cortical thickening. IMPRESSION: PROBABLY BENIGN The stable 1 cm cluster of cysts in the left breast is probably benign. This could represent fibrocystic change or fibroglandular tissue. No suspicious left axillary nodes. A follow-up mammogram and an ultrasound in 6 months is recommended to demonstrate stability. Patient will be due for right mammogram at that time. Exam findings were conveyed to the patient. This exam was interpreted at Station ID: [id number]. Electronically Signed By: Orestes Rivero M.D. slc/:07/24/2024 11:51:23 letter sent: Followup Recommended ACR BI-RADS Category 3: Probably Benign
--- NOTE | 2024-07-24 10:02 | DI.MG.S_ITS ---
UNILATERAL LEFT DIGITAL DIAGNOSTIC MAMMOGRAM 3D/2D SHORT-TERM FOLLOW-UP: 07/24/2024 CLINICAL: Short term follow up of the left breast. Comparison is made to exams dated: 12/28/2023 mammogram, 12/13/2023 mammogram, 11/23/2022 mammogram, and 12/28/2023 ultrasound - [facility]. There are scattered areas of fibroglandular density (category b / 25%-50% glandular tissue). There is a stable focal asymmetry in the left breast at 2 o'clock middle depth. No other significant masses or calcifications are seen in the breast. IMPRESSION: INCOMPLETE: NEED ADDITIONAL IMAGING EVALUATION The stable focal asymmetry in the left breast is indeterminate. A targeted ultrasound is recommended and will immediately follow. Based on the Tyrer Cuzick model (a risk assessment model) the patient's lifetime risk is 3.0% and her 10 year risk is 2.5%. According to the ACR, ACS, and NCCN guidelines, an annual breast MRI exam along with mammogram is recommended if the patient's lifetime risk is 20% or greater. This exam was interpreted at Station ID: [id number]. NOTE: For mammograms, a report in lay terms will be sent to the patient. Approximately 15% of breast malignancies will not be visualized mammographically. In the management of a palpable breast mass, a negative mammogram must not discourage biopsy of a clinically suspicious lesion. Electronically Signed By: Orestes Rivero M.D. [facility]/:07/24/2024 11:47:29 letter sent: Additional Imaging Needed ACR BI-RADS Category 0: Incomplete: Need Additional Imaging Evaluation
== END ==
LOC: MAMMO 10:00
PROVIDERS: PCP Family Medicine; Referring Provider Family Medicine; Visit Provider Family Medicine
DX: N60.12 Diffuse cystic mastopathy of left breast (principal); N64.89 Other specified disorders of breast; N60.02 Solitary cyst of left breast
CPT/HCPCS: 76642; 77065; G0279

== ENCOUNTER → 2025-01-29 12:02 | Outpatient (CLI) | payer MEDICARE, OTHER, SELFPAY ==
[2020-02-14 12:39] VITALS: BMI 31.0
--- NOTE | 2025-01-29 | DI.US.S_ITS ---
MM diagnostic mammo BI, US breast LT limited: 01/29/2025 BI-RADS: 3 CLINICAL: 74-year old female for bilateral diagnostic mammogram and left diagnostic breast ultrasound that is a follow-up to ultrasound, left on 07/24/2024. Tyrer- Cuzick lifetime risk of 2.2%. No personal or first-degree family history of breast cancer. PRIOR EXAMS 07/24/2024, 10/14/2023, 10/13/2022, 10/13/2021, 10/13/2020, 10/13/2017, 09/20/2016. MAMMOGRAPHY TECHNIQUE: 2D and 3D (tomosynthesis) digital mammographic views obtained, with additional images as needed for full coverage. Current study was also evaluated with a Computer Aided Detection (CAD) system. ULTRASOUND TECHNIQUE Real-time gomez scale and color doppler imaging of the area of clinical interest was performed with image documentation. TARGETED Left Breast Ultrasound: Real-time ultrasound exam was performed focused to area of clinical and/or imaging concern. DENSITY B. There are scattered areas of fibroglandular density. MAMMOGRAPHY FINDINGS Right: Benign-appearing masses noted on the right. There are no suspicious masses, calcifications, or other findings in the breast. Left (finding-1): Upper Outer at 2:00, Middle depth: Correlating with prior imaging concern, there is a stable focal asymmetry present. Left: Benign-appearing masses noted on the left. ULTRASOUND FINDINGS Left (finding-1): Upper Outer at 2:00, 7 cm from nipple, measuring 1 x 1.1 x 0.3 cm - previously measuring (07/24/2024) 1 x 0.9 x 0.5 cm - (12/28/2023) 0.9 x 1 x 0.5 cm: Correlating with findings on mammogram, there are clustered microcysts. IMPRESSION: Right * No evidence of malignancy with benign findings. Left (Simple Cyst): Upper Outer at 2:00, 7 cm from nipple, measuring 1 x 1.1 x 0.3 cm - previously measuring (07/24/2024) 1 x 0.9 x 0.5 cm - (12/28/2023) 0.9 x 1 x 0.5 cm * Probably Benign. RECOMMENDATIONS Right * Annual screening mammography in one year. Left: Upper Outer at 2:00, 7 cm from nipple * Followup with diagnostic ultrasound and diagnostic mammography in one year. COMMENTS: Findings and recommendations were conveyed to the patient during today's evaluation. OVERALL ASSESSMENT CATEGORY BI-RADS-3: Probably Benign. ELECTRONICALLY SIGNED: Amalia Coronel M.D. on 01/29/2025 at 04:15:01 PM PT Interpreting Station ID: [id number]
== END ==
LOC: MAMMO 12:04
PROVIDERS: PCP Family Medicine; Referring Provider Family Medicine; Visit Provider Family Medicine
DX: N60.02 Solitary cyst of left breast (principal)
CPT/HCPCS: 76642; 77066; G0279